=== PATIENT | female | born 1960 | race Caucasian/White ===

== ENCOUNTER → 2018-06-09 08:02 | Outpatient (CLI) | payer OTHER, SELFPAY ==
[2018-06-09 08:57] LABS: Add Manual Diff / Slide Review NO; Basophils Percent Auto 0.6 % (0-2); Eosinophils Percent Auto 3.5 % (2-4); Hematocrit 39.7 % (36-46); Hemoglobin 13.3 g/dL (12.0-16.0); Lymphocytes Percent Auto 34.3 % (25-40); Mean Corpuscular HGB Conc 33.6 % (30-36); Mean Corpuscular Hemoglobin 29.9 PG (26-34); Monocytes Percent Auto 7.5 % (3-14); Neutrophils Absolute Auto 2500 /uL (3000-5900); Neutrophils Percent Auto 54.1 % (50-75); Platelet Count 173 X10^3/uL (150-400); Red Blood Cell Count 4.46 X10^6/uL (4.0-5.2); Red Cell Distribution Width 12.4 % (11.6-14.8); White Blood Cell Count 4.6 X10^3/uL (4.5-11.0)
[2018-06-09 09:47] LABS: Alanine Aminotransferase 21 IU/L (9-52); Albumin 4.3 g/dL (3.5-5.0); Albumin Globulin Ratio 1.5 (1.0-2.8); Alkaline Phosphatase 131 U/L (38-126); Aspartate Aminotransferase 25 IU/L (14-36); BUN Creatinine Ratio 22.5 (6-22); Bilirubin Total 0.8 mg/dL (0.2-1.3); Blood Urea Nitrogen 18 mg/dL (7-17); Calcium 9.5 mg/dL (8.4-10.2); Carbon Dioxide 31 mmol/L (22-32); Chloride 104 mmol/L (98-107); Cholesterol 183 mg/dL (140-199); Estimated Glomerular Filt Rate > 60.0 mL/min (>60); Globulin 2.8 g/dL (1.7-4.1); Glucose 89 mg/dL (70-100); HDL Cholesterol 52 mg/dL (40-60); HEMOLYSIS < 15 (0-50); LDL Cholesterol Calculated 115 mg/dL (<100); Potassium 4.2 mmol/L (3.4-5.1); Sodium 142 mmol/L (137-145); Total Protein 7.1 g/dL (6.3-8.2); Triglycerides 78 mg/dL (35-150)
== END ==
PROVIDERS: Family Provider Family Medicine; PCP Family Medicine; Visit Provider Family Medicine
DX: Z00.00 Encounter for general adult medical examination without abnormal findings (principal); E03.9 Hypothyroidism, unspecified
CPT/HCPCS: 36415; 80053; 80061; 84443; 85025

== ENCOUNTER → 2019-07-05 13:11 | Outpatient (CLI) | payer OTHER, SELFPAY ==
[2019-07-05 15:28] LABS: Thyroid Stimulating Hormone 1.94 uIU/mL (0.47-4.68)
== END ==
PROVIDERS: PCP Family Medicine; Visit Provider Family Medicine
DX: E03.9 Hypothyroidism, unspecified (principal)
CPT/HCPCS: 36415; 84443

== ENCOUNTER → 2019-07-07 10:06 | Outpatient (CLI) | payer OTHER, SELFPAY ==
--- NOTE | 2019-07-07 | DI.MG.S_ITS ---
BILATERAL DIGITAL SCREENING MAMMOGRAM 3D/2D WITH CAD: 07/07/2019 CLINICAL: Routine screening. Family history of breast cancer. Comparison is made to exams dated: 07/10/2017 mammogram, 09/23/2014 mammogram - [facility], and 02/01/2011 mammogram - [facility]. The tissue of both breasts is heterogeneously dense. This may lower the sensitivity of mammography. Current study was also evaluated with a Computer Aided Detection (CAD) system. No significant masses, calcifications, or other findings are seen in either breast. There has been no significant interval change. IMPRESSION: NEGATIVE There is no mammographic evidence of malignancy. A 1 year screening mammogram is recommended. This exam was interpreted at Station ID: [id number]. NOTE: For mammograms, a report in lay terms will be sent to the patient. Approximately 15% of breast malignancies will not be visualized mammographically. In the management of a palpable breast mass, a negative mammogram must not discourage biopsy of a clinically suspicious lesion. Electronically Signed By: Luis cordova/mahendra:07/07/2019 16:21:10 letter sent: Normal Exam ACR BI-RADS Category 1: Negative [id number]
== END ==
PROVIDERS: PCP Family Medicine; Visit Provider Family Medicine
DX: Z13.21 Encounter for screening for nutritional disorder (principal); Z80.3 Family history of malignant neoplasm of breast
CPT/HCPCS: 77063; 77067

== ENCOUNTER → 2019-07-22 09:49 | Outpatient (CLI) | payer OTHER, SELFPAY ==
--- NOTE | 2019-07-22 09:51 | DI.US.S_ITS ---
PROCEDURE: US ABDOMEN COMPLETE INDICATIONS: RIGHT UPPER QUADRANT PAIN TECHNIQUE: Real-time scanning was performed of the abdominal and retroperitoneal organs, with image documentation. COMPARISON: None. FINDINGS: Liver: Liver is normal in size and homogeneous in echotexture. 4 echogenic liver masses are present, largest measuring up to 3.3 cm Gallbladder: No gallstones identified. Normal gallbladder wall. No pericholecystic fluid. Negative sonographic Olivares sign. Biliary ducts: Intrahepatic bile ducts are non-dilated. Extrahepatic bile duct caliber measures 4.7 mm. Normal is 6-7 mm or less in diameter, or 10 mm or less post-cholecystectomy. Pancreas: Not visualized. Spleen: Spleen is normal in size and homogeneous in echotexture. Kidneys: Kidneys are normal in size and echotexture. Right kidney measures 9.9 cm long; left kidney measures 10.9 cm long. No hydronephrosis or nephrolithiasis. No solid masses. Aorta: Visualized aorta is normal in caliber at less than 3 cm. Iliacs: Proximal common iliac arteries are normal in caliber at less than 2.5 cm. IVC: Intrahepatic inferior vena cava is patent. Miscellaneous: No free abdominal fluid. IMPRESSION: 1. 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 Recommend sequential follow up sonography at 6, 12 and 24 month intervals for surveillance. 2. No source for right upper quadrant pain identified. Dictated by: Bird CAPONE Interpreted: Armando Vera MD on 07/22/2019 at 11:22 Approved by: Armando Vera M.D. on 07/22/2019 at 12:15
== END ==
PROVIDERS: PCP Family Medicine; Visit Provider Family Medicine
DX: R10.11 Right upper quadrant pain (principal)
CPT/HCPCS: 76700

== ENCOUNTER → 2019-08-11 13:31 | Outpatient (CLI) | payer OTHER, SELFPAY ==
--- NOTE | 2019-08-11 13:35 | DI.RAD.S_ITS ---
PROCEDURE: XR CHEST 2V INDICATIONS: left rib abd pain ?? TECHNIQUE: 2 views of the chest were acquired. COMPARISON: None. FINDINGS: Surgical changes and devices: None. Lungs and pleura: Lungs are clear. No pleural effusions or pneumothorax. Mediastinum: Mediastinal contours are normal. Heart size is normal. Bones and chest wall: No suspicious bony abnormalities. Soft tissues appear unremarkable. IMPRESSION: No acute disease Dictated by: Lamin Coker M.D. on 08/11/2019 at 15:52 Approved by: Lamin Coker M.D. on 08/11/2019 at 15:53
== END ==
PROVIDERS: PCP Family Medicine; Visit Provider Family Medicine
DX: R07.81 Pleurodynia (principal)
CPT/HCPCS: 71046

== ENCOUNTER → 2021-02-15 09:02 | Outpatient (CLI) | payer OTHER, SELFPAY ==
[2021-02-15] MEDS: COVID-19 VACC, Ad26(JANSSEN)/PF 0.5 ML IM (09:09)
== END ==
PROVIDERS: PCP Family Medicine; Visit Provider Internal Medicine
DX: Z23 Encounter for immunization (principal)
CPT/HCPCS: 0031A; 91303

== ENCOUNTER → 2024-09-28 14:56 | Outpatient (CLI) | payer MEDICARE, SELFPAY ==
--- NOTE | 2024-09-28 15:02 | DI.RAD.S_ITS ---
PROCEDURE: XR KNEE STANDING BI INDICATIONS: KNEE PAIN TECHNIQUE: AP view of the knees. COMPARISON: [facility], CR, XR KNEE LT 1TO2V, 09/28/2024, 14:59. FINDINGS: Bones: No acute fractures or dislocations. Patellar alignment is normal on the sunrise view. No suspicious bony lesions. Joint spaces appear normal with weightbearing. Soft tissues: No knee joint effusions. No suspicious soft tissue calcification. IMPRESSION: No significant degenerative changes appreciated. Dictated by: Benny Giordano M.D. on 09/28/2024 at 23:32 Approved by: Benny Giordano M.D. on 09/28/2024 at 23:33
--- NOTE | 2024-09-28 15:02 | DI.RAD.S_ITS ---
PROCEDURE: XR KNEE LT 1TO2V INDICATIONS: KNEE PAIN TECHNIQUE: Lateral and sunrise views of the knee were acquired. COMPARISON: [facility], CR, XR KNEE STANDING BI, 09/28/2024, 14:59. FINDINGS: No acute fracture or dislocation. The joint spaces are preserved. Faint quadriceps enthesopathy of the superior pole of patella. No significant joint effusion. IMPRESSION: No acute fracture or dislocation of the left knee. Dictated by: Barber Cardenas M.D. on 09/29/2024 at 9:09 Approved by: Barber Cardenas M.D. on 09/29/2024 at 9:10
== END ==
PROVIDERS: PCP Internal Medicine; Referring Provider Family Medicine; Visit Provider Family Medicine
DX: M25.562 Pain in left knee (principal)
CPT/HCPCS: 73560; 73565

== ENCOUNTER → 2025-05-11 15:50 | Outpatient (CLI) | payer MEDICARE, SELFPAY ==
--- NOTE | 2025-05-11 15:51 | DI.MG.S_ITS ---
MM screening mammo BI: 05/11/2025. BI-RADS: 1 CLINICAL: 64-year old female for bilateral screening mammogram. Tyrer-Cuzick lifetime risk of 7.9%. No personal or first-degree family history of breast cancer. Current reported family history of breast cancer: maternal grandmother. PRIOR EXAMS 09/30/2023, 07/07/2019, 07/10/2017. MAMMOGRAPHY TECHNIQUE: 2D and 3D (tomosynthesis) digital mammographic views obtained, with additional images as needed for full coverage. Current study was also evaluated with a Computer Aided Detection (CAD) system. DENSITY B. There are scattered areas of fibroglandular density. MAMMOGRAPHY FINDINGS Bilateral: No suspicious mass, asymmetry, microcalcification, or other abnormality seen. No significant change from comparison. IMPRESSION: * No evidence of malignancy. RECOMMENDATIONS Bilateral * Annual screening mammography. OVERALL ASSESSMENT CATEGORY BI-RADS-1: Negative. The [employer] recommends annual screening mammography beginning at age 40 for women with average risk of breast cancer. ELECTRONICALLY SIGNED: Hollis Stovall M.D. on 05/12/2025 at 12:16:58 PM PT Interpreting Station ID: [id number]
== END ==
LOC: MAMMO 15:51
PROVIDERS: PCP Internal Medicine; Referring Provider Internal Medicine; Visit Provider Internal Medicine
DX: Z12.31 Encounter for screening mammogram for malignant neoplasm of breast (principal); Z80.3 Family history of malignant neoplasm of breast
CPT/HCPCS: 77063; 77067